=== PATIENT | female | born 1955 | race Caucasian/White ===

== ENCOUNTER 2016-08-02 19:16 | Inpatient (IN) | payer OTHER ==
--- NOTE | ~2016-08-02 | DS ---
Unit #: [id number] #: [id number] Patient: HUSSAIN PETERSON [id number] [address] [place], [place] [address] [id number] Anish MR#: [id number] NAME: HUSSAIN PETERSON. ROOM: 553 Age: Sex: F Admission Date: 08/02/2016 : 1955 Discharge Date: 08/15/2016 Attending Physician: Vasiliy Stein M.D. Referring Physician: Sherice Schumacher Aprn Primary Care Physician: Sherice Schumacher Aprn DISCHARGE SUMMARY ADDENDUM In the last few days, she is on Coumadin and with bridging anticoagulation with heparin which was transitioned to Lovenox yesterday. Her INR is 2.1, therapeutic. I spoke with Dr. Cee and she is agreeable for her discharge today. For myelodysplasia, did have a bone marrow biopsy. The biopsy report is pending at this point. I spoke with Dr. Mckeon yesterday. He is scheduling her for an outpatient followup for the bone marrow biopsy result for further plan regarding anemia. Kindly note, she had upper scope which was essentially normal apart from mild gastritis which was done as a part of workup for anemia. She is doing clinically stable. She will be discharged home with home health care. PHYSICAL EXAMINATION On the day of the discharge, her physical examination: VITAL SIGNS: Temperature 98.1, pulse rate 70, respirations 16, blood pressure 120/49. GENERAL: Patient is alert, oriented x3. Lying in the bed, no acute distress. HEENT: Normocephalic and atraumatic. No icterus. PERRLA. Extraocular muscles intact. NECK: Supple. No JVD. HEART: S1, S2. Irregular. CHEST: Bilateral equal air entry. Clear to auscultation. ABDOMEN: Soft, nontender. EXTREMITIES: No edema. Normal pulses. DISCHARGE MEDICATIONS 1. Protonix 40 mg p.o. daily. 2. Coumadin 7.5 mg p.o. daily and to target INR between 2-3. Kindly note, due to her recent GI bleed, she is instructed to keep her INR therapeutic in the lower between 2-3 range. 3. Zoloft 100 mg daily. 4. Zyrtec 5 mg daily. 5. Klonopin 0.5 mg p.o. twice a day. 6. Coreg 3.125 mg twice a day. 7. Bumex dosage changed to 1 mg p.o. twice a day with an additional dose 1 mg if there is an increase in shortness of breath or swelling. 8. Pravachol 20 mg at bedtime. 9. Lisinopril 2.5 mg at bedtime. 10. Singulair 10 mg daily. 11. Aspirin 81 mg daily. Unit #: [id number] #: [id number] Patient: HUSSAIN PETERSON 12. Protonix 40 mg daily. 13. KCl 20 mEq p.o. daily. 14. Synthroid 175 mcg p.o. daily. 15. Folic acid 1 mg p.o. daily which is an over the counter. 16. Vitamin D2 at 50,000 units p.o. q. weekly. FOLLOWUP She is instructed to follow with her primary care and with cardiology. I am also giving her a prescription to repeat BMP and CBC in one week. All the discharge instructions explained in detail to the patient. Total time spent in her care 35 minutes. Dictated by... Moreno Blum TD: 08/15/2016 11:20 JOB #: [id number] DISCHARGE SUMMARY Page 1 of 1 X X DISCHARGE SUMMARY
--- NOTE | ~2016-08-02 | XA51 ---
[facility] A Service of [facility] & [facility] RADIOLOGY TEXT RESULTS PATIENT: HUSSAIN PETERSON LOCATION: [place] [address] : 55 UNIT #: [id number] AGE: [address]: Vasiliy Stein MD SEX: F ORDER DR: [id number] [facility] [address] [place], [place] [address] [id number] I MR#: [id number] Acc #: [id number] NAME: HUSSAIN PETERSON : 1955 SEX: F STUDY DATE/TIME: 08/07/2016 11:18 UNIT: [facility] ROOM: [facility] STUDY DESCRIPTION: XA BX Bone Marrow Attending Physician: Vasiliy Stein M.D. Referring Physician: Sherice Schumacher Aprn Ordering Physician: Mike Ha M.D. Primary Care Physician: Sherice Schumacher Aprn MEDICAL IMAGING REPORT This report is preliminary unless electronic signature is present EXAM XA BX bone marrow.. INDICATION Pancytopenia. She apparently had this diagnosis in the past but was lost to followup. FINDINGS Please see CT guide for result text. Dictated by... Talisha Biggs M.D. THIS IS AN ELECTRONICALLY VERIFIED REPORT Talisha Biggs M.D. at 08/08/2016 12:55 PM AFF/tmw TD: 08/08/2016 09:22 JOB #: [id number] MEDICAL IMAGING REPORT Page 1 of 1 COPY
--- NOTE | ~2016-08-02 | CO ---
Unit #: [id number] #: [id number] Patient: HUSSAIN PETERSON [id number] [address] [place], [place] [address] [id number] I MR#: [id number] NAME: HUSSAIN PETERSON ROOM: 553 Age: 61 Sex: F Admission Date: 08/02/2016 : 1955 Attending Physician: Vasiliy Stein M.D. Primary Care Physician: Sherice Schumacher, Susanne Consultation Date: 08/03/2016 CONSULTATION REPORT REASON FOR CONSULTATION Congestive heart failure. HISTORY OF PRESENT ILLNESS This is a 61-year-old white female, who is known to our group, who has a history of nonischemic cardiomyopathy for which she underwent AICD implantation. She has severe left ventricular systolic dysfunction with an ejection fraction of 20% to 25% per echocardiogram in 2014. She had a cardiac catheterization in 2008, which revealed normal coronaries. Stress test in 2014 showed minerva-infarct ischemia of old inferolateral myocardial infarction and old anterior wall myocardial infarction. In 2008, she had ventricular tachycardia and cardiac arrest and AICD was placed at that time. She had a mechanical mitral valve replacement in 1989. The patient presents to the emergency room with a complaint of shortness of breath and leg edema. She also reports sore throat, lightheadedness, and weakness. She was found to have severe anemia with hemoglobin of 4.7. She was also hypokalemic with potassium level of 3.4. Troponin is mildly elevated at 0.07. BNP is 550. Chest x-ray was consistent with vshn-yz-soxrrttp congestive heart failure. She was admitted to the intensive care unit and received 2 units of packed red blood cells. She was diuresed with IV diuretics prior to blood transfusion. The patient was hospitalized in 04/2016, where she was found to have aortic and mitral valve disease and underwent aortic valve replacement with repair of mitral valve perivalvular leak and tricuspid valve repair at [facility] per Dr. Erwin. She underwent a right and left heart catheterization per Dr. Burr; however, the details are not known. PAST MEDICAL HISTORY 1. Chronic systolic heart failure with reduced ejection fraction of 20% to 25% per echocardiogram in 08/2014. 2. Mechanical mitral valve replacement in 1989. 3. Ventricular tachycardia and cardiac arrest in 2008, status post AICD. 4. Paroxysmal atrial fibrillation, on anticoagulation with Coumadin. 5. Lexiscan Cardiolite stress test in 08/2014, which revealed old inferolateral myocardial infarction with minerva-infarct ischemia. Old anterior wall myocardial infarction with no ischemia. Ejection fraction of 35%. 6. 2D echocardiogram in 08/2014 showed an ejection fraction of 20% to 25% with moderate mitral regurgitation and moderate aortic stenosis. Moderate tricuspid regurgitation. Unit #: [id number] #: [id number] Patient: HUSSAIN PETERSON 7. Hypertension. 8. Hyperlipidemia. 9. Hypothyroidism. 10. History of liver cirrhosis. 11. Chronic anemia. 12. Former smoker. 13. Chronic kidney disease. 14. Status post porcine aortic valve replacement with repair of mitral valve perivalvular leak and tricuspid valve repair per Dr. Erwin in 04/2016 at [facility]. Report unavailable. 15. History of recurrent GI bleed. PAST SURGICAL HISTORY 1. AICD implantation. 2. Mitral valve repair in 1989. 3. Partial hysterectomy. 4. Tonsillectomy. SOCIAL HISTORY The patient lives at home with her family. She is mostly sedentary. Quit smoking in 2014, previously smoked half a pack of cigarettes daily. Denies illicit drug or alcohol use. FAMILY HISTORY Mother has history of atrial fibrillation. ALLERGIES Ambien, cephalexin, and sulfa. HOME MEDICATIONS Coumadin 7.5 mg daily, carvedilol 3.125 mg b.i.d., potassium chloride 20 mEq daily, lisinopril 2.5 mg q.h.s., Bumex 2 mg b.i.d., Zyrtec 5 mg daily, Protonix 40 mg daily, clonazepam 0.5 mg b.i.d. p.r.n., Singulair 10 mg daily, levothyroxine 175 mcg daily, Zoloft 100 mg q.h.s., Pravachol 20 mg q.h.s., vitamin D2 50,000 units weekly. PHYSICAL EXAMINATION VITAL SIGNS: Blood pressure 131/51, heart rate 67, temperature 98.2, BMI 31. GENERAL: This is a 61-year-old mildly obese, white female, who is in no acute respiratory distress. NEUROLOGIC: She is awake, alert, and oriented. There were no focal weaknesses. NECK: Trachea is midline. No thyromegaly or lymphadenopathy. No jugular venous distention. HEART: S1 and S2. Heart sounds are normal with a soft systolic murmur heard best at the right sternal border. No rubs or clicks. Regular rate and rhythm. LUNGS: Have rales at both lung bases. ABDOMEN: Soft and nontender with bowel sounds are present. EXTREMITIES: With 1+ leg edema. SKIN: Warm and dry. DIAGNOSTIC STUDIES LABORATORY RESULTS: Glucose 82, BUN 18, creatinine 1.0. Sodium 142, potassium 3.4. CK total of 25, troponin 0.07 and 0.04. BNP 550. Protime 34.6, INR 3.2. White count 2.2, hemoglobin 6.6, hematocrit 21.3, platelet Unit #: [id number] #: [id number] Patient: HUSSAIN PETERSON E count is 88. IMAGING STUDIES: Chest x-ray noted for gkxo-hl-xtaoexeo congestive heart failure. CARDIOVASCULAR STUDIES: EKG shows normal sinus rhythm with a rate of 63 beats per minute with left bundle-branch block. There was poor R-wave progression. IMPRESSION 1. Leg edema and shortness of breath secondary to acute on chronic systolic heart failure. 2. History of nonischemic cardiomyopathy with ejection fraction of 20%. 3. Status post tissue aortic valve replacement with repair of mechanical mitral valve perivalvular leak and tricuspid valve repair in 04/2016 at [facility]. 4. History of mechanical mitral valve replacement in 1989 and 2008. 5. History of ventricular tachycardia and cardiac arrest. 6. Paroxysmal atrial fibrillation. 7. Severe anemia, questionable myelodysplasia with pancytopenia. 8. Hypoproteinemia. PLAN 1. Cardiology was consulted for congestive heart failure. The patient has been given Lasix along with blood transfusion. We have told her to restrict fluids to 1800 mL a day. 2. Start on Aldactone. 3. Obtain 2D echocardiogram to evaluate left ventricular systolic function. 4. Attempt to obtain catheterization report from [facility]. 5. Evaluate pancytopenia. 6. Continue Coumadin anticoagulation for mitral valve prosthesis and paroxysmal atrial fibrillation. 7. We will follow the patient with you. Thank you for allowing us to assist in this patient's care. Dictated by... Fab JuddPAungN. for Moreno Alfaro/modl TD: 08/04/2016 02:30 JOB #: [id number] CONSULTATION REPORT Page 1 of 1 X Giorgio Ramsey APRN CONSULTATION REPORT
--- NOTE | ~2016-08-02 | A ---
[facility] Nutrition Therapy DATE: 08/03/16 Patient: HUSSAIN PETERSON Physician: SABINA Address: [address] Room/Bed: [address], Zip: [place] [address] Admit Date: 08/02/16 Date of : [birth year] Height: 5 7 Weight: 198 90 NUTRITIONAL ASSESSMENT: REASON: Consult RE: Improve nutritional status 61 yo female admitted for anemia, CHF PMH: CHF, CKD, HLD, HTN, AICD placement, cardiac arrest, cardiomyopathy, tachycardia, hypothyroidism, Afib, s/p mitral valve replacement Anthropometrics: Ht: 67" Wt: 90 kg BMI: 31.1 Labs: K+ 3.4 Ca++ 8.1 Alb 3.0 Meds: Vitamin D, sprionolactone, protonix, synthroid, bumetanide, lipitor I/O & Bowel function: 720/250, last BM 08/02 Skin Integrity: No breakdown noted Edema: 2+ BL feet and legs Generalized Diet: Heart healthy/ 1800 mL fluid restriction Assessment: Chart reviewed, events noted. 61 yo female admitted to ICU for anemia and CHF. RD received consult to improve nutritional status. RD spoke with the pt at bedside. Pt was lethargic, struggling to keep her eyes open. Pt reports that she has gained weight lately, which she attributes to fluid retention. Pt reports having a fair appetite, and consumed ~40% of her breakfast and 60% of her Ensure Enlive. Pt prefers vanilla Ensure. RD suggested Ensure compact for a lower volume supplement, as the pt is on a fluid restriction. Pt is not appropriate for diet education at this time d/t lethargy. RD will follow up to provide education. Please see recommendations below. Dx: Decreased fluid needs RT edema/ fluid gain, PMH/ heart dysfunction AEB pt reported weight gain d/t fluid retention. Intervention: 1. Heart healthy diet 2. Fluid restriction per MD Monitoring, Evaluation and Goals: 1. Oral intake; tolerate >50-75% meals and supplements 2. Labs; WNL [facility] Nutrition Therapy DATE: 08/03/16 Patient: HUSSAIN PETERSON Physician: SABINA Address: [address] Room/Bed: [address], Zip: [place] [address] Admit Date: 08/02/16 Date of : [birth year] Height: 5 7 Weight: 198 90 3. Weight; preserve lean body mass, prevent fluid accumulation Recommendations: 1. Continue heart healthy diet + fluid restriction per MD as tolerated. RD to provide diet education as appropriate. 2. Ensure compact (vanilla) BID with breakfast and dinner for low-volume, supplemental nutrition. Pt is at mild-moderate nutritional risk. RD will follow hospital course per protocol. Respectfully, IMAN LAWS RD, LD [employer] [facility] [employer] cc: client file
--- NOTE | ~2016-08-02 | OR ---
Unit #: [id number] #: [id number] Patient: HUSSAIN PETERSON [id number] [place] [id number] [facility]. [place], [place] [address] [id number] I MR#: [id number] NAME: HUSSAIN PETERSON. ROOM: 553 Date of Procedure: 08/04/2016 Admission Date: 08/02/2016 Surgeon: Enrico Kline M.D. : 1955 Attending Physician: Vasiliy Stein M.D. Referring Physician: Sherice Schumacher Aprn Primary Care Physician: Sherice Schumacher Aprn OPERATIVE REPORT PRIMARY CARE PHYSICIAN Sherice Schumacher APRN. PREOPERATIVE DIAGNOSIS Recurrent gastrointestinal bleed. PROCEDURES PERFORMED Upper gastrointestinal endoscopy and a push enteroscopy. POSTOPERATIVE DIAGNOSIS Completely normal examination up to proximal jejunum except for mild antral gastritis. RECOMMENDATIONS The management of this patient's recurrent bleed is quite a challenging and difficult problem to resolve. It seems that she had an upper endoscopy and a colonoscopy done in [facility] [place] per Dr. Harpal Laurent. The upper endoscopy at that time was normal just like it is today. The patient however had fresh blood in the entire colon including in the terminal ileum indicating that the site of bleeding is in the small bowel. Vast majority of the bleeding in this situation would be coming from an angiodysplasia in the mid or distal small bowel beyond the region of the scope. Therefore, endoscopic treatment is impossible in this instance, even a pill CAM study will not pickup the bleed unless the patient is actively bleeding at the time of examination. My recommendation would be to consider mesenteric angiography in case of recurrent bleed and consider embolization therapy, even though it is a long shot as bleeding tends to be intermittent. We will also suggest to keep the INR at the lower end of the therapeutic range desired. SEDATION USED MAC. DESCRIPTION OF PROCEDURE Following detailed explanation of potential risks and complications of an upper endoscopy and push enteroscopy, namely perforation, bleeding, and complications related to sedation, the patient was brought to GI lab and laid in the left lateral decubitus position. Lubricated tip of Olympus video upper endoscope was passed through the bite block into the proximal esophagus under direct vision. The entire esophageal mucosa was examined and appeared normal. Z-line was nicely demarcated, there being no Unit #: [id number] #: [id number] Patient: HUSSAIN PETERSON esophagitis or hiatus hernia. The scope was then advanced into the gastric cavity and the latter was insufflated. Mucosa of the fundus, body, and antrum examined and appeared unremarkable. Pylorus was intubated with visualization of the normal duodenal bulb and second and third part of the duodenum. Upon withdrawal and retroflexion, incisura, cardia, and greater curve examined and changes of mild antral gastritis noted. The scope was then withdrawn in the distal esophagus. Entire esophageal mucosa was examined all the way up to pharynx, no additional findings noted. A pediatric colonoscope was used for push enteroscopy. At this time, the scope was advanced past the duodenum into the proximal jejunum. Again, no additional abnormalities noted. The patient did not have any angiodysplasias in the proximal jejunum. The scope was then withdrawn. The patient returned to the recovery area. She tolerated the procedure without any postprocedure complications. Dictated by... Moreno Avery/nanda TD: 08/05/2016 02:39 JOB #: [id number] OPERATIVE REPORT Page 1 of 1 X Enrico Kline MD X PROCEDURE OPERATIVE NOTE
--- NOTE | ~2016-08-02 | EKG ---
PATIENT: HUSSAIN PETERSON UNIT #: [id number] Ventricular Rate: 63 BPM Atrial Rate: 63 BPM QRS Duration: 140 ms Q-T Interval: 518 ms QTC Calculation(Bezet): 530 ms Calculated R [place]: 35 degrees Calculated T [place]: -160 degrees Diagnosis Line: Junctional rhythm Diagnosis Line: Non-specific intra-ventricular conduction block Diagnosis Line: T wave abnormality, consider lateral ischemia Diagnosis Line: Abnormal ECG Diagnosis Line: When compared with ECG of 10-JAN-2016 02:06, Diagnosis Line: Junctional rhythm has replaced Electronic Diagnosis Line: ventricular pacemaker Diagnosis Line: Confirmed by FELIPE BOND MD ([id number]) on 08/04/2016 Diagnosis Line: 6:06:05 AM INTERPRETING MD: RONDA REDDY
--- NOTE | ~2016-08-02 | CR72 ---
[facility] A Service of [facility] & [facility] RADIOLOGY TEXT RESULTS PATIENT: HUSSAIN PETERSON LOCATION: [facility] : 55 UNIT #: [id number] AGE: [address]: Vasiliy Stein MD SEX: F ORDER DR: [id number] [facility] [address] [place], [place] [address] [id number] I MR#: [id number] #: [id number] NAME: HUSSAIN PETERSON : 1955 SEX: F STUDY DATE/TIME: 08/02/2016 18:56 UNIT: [facility] ROOM: 04582 STUDY DESCRIPTION: CR Chest Single View Portable Attending Physician: Laquita Menard M.D. Referring Physician: Sherice Schumacher Aprn Ordering Physician: Bj Felipe M.D. Primary Care Physician: Sherice Schumacher Aprn MEDICAL IMAGING REPORT This report is preliminary unless electronic signature is present EXAM Portable chest HISTORY 61-year-old female shortness of air, weakness, leg swelling x4 days. COMPARISON 06/14/2016. FINDINGS Portable view of the chest demonstrates cardiomegaly with probable pulmonary vascular interstitium compatible with [id number]-xciovcbv CHF. No effusions. Dual-lead pacemaker defibrillator noted overlying the left chest. Stable cardiomegaly in this patient post median sternotomy and apparent CABG. No pneumothorax. Dictated by... Dario Jarrell M.D. THIS IS AN ELECTRONICALLY VERIFIED REPORT Dario Jarrell M.D. at 08/03/2016 2:03 PM Wong TD: 08/02/2016 21:53 JOB #: [id number] MEDICAL IMAGING REPORT Page 1 of 1 COPY
--- NOTE | ~2016-08-02 | HP ---
Unit #: [id number] #: [id number] Patient: HUSSAIN PETERSON [id number] [address] [place], [place] [address] [id number] I MR#: [id number] NAME: HUSSAIN PETERSON. ROOM: 35678 Age: 61 Sex: F Admission Date: 08/02/2016 : 1955 Attending Physician: Laquita Menard M.D. Referring Physician: Sherice Schumacher Aprn Primary Care Physician: Sherice Schumacher Aprn HISTORY AND PHYSICAL CHIEF COMPLAINT Symptomatic anemia, congestive heart failure. HISTORY OF PRESENT ILLNESS This is pleasant 61-year-old female with a cardiomyopathy, anticoagulated, status post mechanical valve replacement and for atrial fibrillation, is admitted for profound anemia and congestive heart failure. The patient was well until the past week when she developed a sore throat, lightheadedness, weakness, increasing pedal edema, shortness of breath. Denies chest pain with the above. No melena or hematochezia. She presents to this emergency department profoundly anemic with a hemoglobin of 4.7, hematocrit 15.6 down from a hematocrit of 24.8. MCV is 77. She also has thrombocytopenia and neutropenia. On examination and on chest x-ray, she demonstrates congestive heart failure. INR is therapeutic at 3. A rectal examination was performed in the ER revealing trace heme-positive stool. In the ER, she was given 40 mg of IV Protonix. PAST MEDICAL HISTORY 1. Nonischemic cardiomyopathy, ejection fraction 20% to 25% on echo August 2014 with moderate AR, mild , moderate TR, well-functioning mechanical valve. Cardiolite stress test August 2014, old inferolateral [place] minerva-infarct ischemia. Cardiac catheterization 2008 revealed normal coronary arteries. Patient does have a history of ventricular tachycardia as well. 2. Chronic atrial fibrillation, status post AICD placement. 3. Status post mitral valve replacement. 4. Hyperlipidemia. 5. Hypothyroidism. 6. Asthma. 7. Chronic kidney disease. 8. Anxiety and depression. 9. Thrombocytopenia. 10. Chronic kidney disease. 11. Hysterectomy. 12. Tonsillectomy. ALLERGIES 1. Ambien. 2. Keflex. 3. Sulfa. 4. Patient states that she cannot take Lovenox but she is able to take heparin. Unit #: [id number] #: [id number] Patient: HUSSAIN PETERSON HOME MEDICATIONS 1. Coumadin 7.5 mg daily. 2. Coreg 3.125 mg b.i.d. 3. Potassium 20 mEq daily. 4. Lisinopril 2.5 mg h.s. 5. Bumex 2 mg b.i.d. 6. Zyrtec 5 mg daily. 7. Protonix 40 mg daily. 8. Klonopin 0.5 mg b.i.d. p.r.n. 9. Singulair 10 mg daily. 10. Synthroid 0.175 mg daily. 11. Zoloft 100 mg h.s. 12. Pravachol 20 mg h.s. 13. Vitamin D 50,000 units each week. SOCIAL HISTORY The patient lives with her son. She stopped smoking two years ago. Does not drink alcohol. FAMILY HISTORY Possible polycythemia vera. REVIEW OF SYSTEMS Notable for shortness of breath, lightheadedness, weakness, sore throat, congestive heart failure, mitral valve replacement, atrial fibrillation, ventricular tachycardia, hypothyroidism, hypertension, chronic kidney disease, above-mentioned surgeries. All other systems were reviewed and are negative. PHYSICAL EXAMINATION VITAL SIGNS: Temperature 97.6, pulse 76, respirations 16, blood pressure 116/44, O2 saturation 100% on room air. GENERAL: Pleasant, pale-appearing 61-year-old female currently in no acute distress. HEENT: Eyes PERRLA. Extraocular muscles are intact. Pharynx benign. NECK: Supple without adenopathy or thyromegaly. Elevated JVD noted. CHEST: Crackles bilaterally. HEART: Normal S1, S2 with a loud systolic murmur heard throughout the precordium. The patient has a crisp prosthetic valve sound at the apex. ABDOMEN: Bowel sounds are present. No hepatosplenomegaly, tenderness or masses. EXTREMITIES: 3+ pedal edema. NEUROLOGIC: Awake, alert, oriented. Cranial nerves are intact. Equal strength throughout. DIAGNOSTIC STUDIES LABORATORY: Hematocrit 15.6 with MCV of 77.1, platelet count 89, white blood cell count 2.3 with a normal differential. INR is 3.1. SMA-12 calcium 8.2, albumin 3.2. BNP 523. Troponin 0.07 and 0.08. IMAGING: Chest x-ray cardiomegaly, mild congestive heart failure. ASSESSMENT 1. Symptomatic microcytic anemia. Patient is trace heme-positive on rectal examination. Lab work, however, also demonstrates pancytopenia. 2. Status post mitral valve replacement, anticoagulated with a therapeutic INR. Unit #: [id number] #: [id number] Patient: HUSSAIN PETERSON 3. Cardiomyopathy with congestive heart failure exacerbation secondary to anemia. 4. Chronic atrial fibrillation/sick sinus syndrome/AICD placement. 5. Hypothyroidism. 6. Anxiety and depression. 7. Hypertension. 8. Chronic kidney disease. PLAN 1. Transfuse with Bumex. 2. I's and O's and daily weights. 3. IV proton pump inhibitor. 4. Hold Coumadin. 5. Anemia workup. 6. Cardiology, Gastroenterology and Hematology to see in consultation. Critical care time spent evaluating this patient was 40 minutes. Dictated by Laquita Menard M.D. AML/malka TD: 08/02/2016 21:52 JOB #: [id number] HISTORY AND PHYSICAL Page 1 of 1 X Laquita Menard MD X HISTORY AND PHYSICAL
--- NOTE | ~2016-08-02 | CR72 ---
[facility] A Service of [facility] RADIOLOGY TEXT RESULTS PATIENT: HUSSAIN PETERSON LOCATION: [place] [address] : [birth year] UNIT #: [id number] AGE: [address]: Vasiliy Stein MD SEX: F ORDER DR: [id number] [facility] [address] [place], [place] [address] [id number] I MR#: [id number] Acc #: [id number] NAME: HUSSAIN PETERSON : 1955 SEX: F STUDY DATE/TIME: 08/06/2016 0:52 UNIT: [facility] ROOM: [facility] STUDY DESCRIPTION: CR Chest Single View Portable Attending Physician: Vasiliy Stein M.D. Referring Physician: Sherice Schumacher Aprn Ordering Physician: Vasiliy Stein M.D. Primary Care Physician: Sherice Schumacher Aprn MEDICAL IMAGING REPORT This report is preliminary unless electronic signature is present EXAM Portable chest INDICATIONS PIC catheter placement TECHNIQUE/COMPARISON This portable view of the chest compared with 08/02/2016 FINDINGS The PIC catheter has been added and the tip is in the lower SVC. There is mild diffuse interstitial prominence and cardiomegaly and the pacemaker is stable. Dictated by... Benjamin Powers M.D. THIS IS AN ELECTRONICALLY VERIFIED REPORT Benjamin Pwoers M.D. at 08/06/2016 9:55 PM FEL/to TD: 08/06/2016 18:04 JOB #: [id number] MEDICAL IMAGING REPORT Page 1 of 1 COPY
--- NOTE | ~2016-08-02 | FU ---
[facility] Nutrition Therapy DATE: 08/08/16 Patient: HUSSAIN PETERSON Physician: SABINA Address: [address] Room/Bed: [address] [place] [address], Zip: [place] [address] Admit Date: 08/02/16 Date of : 55 Height: 5 7 Weight: 195 88.6 NUTRITION MONITORING/FOLLOW-UP: Reason: PT SEEN FOR FOLLOW-UP DX: ANEMIA, CHF Anthropometrics: 5'7", WT: 195# ( 89 KG), BMI: 30.5 -WEIGHTS HAVE BEEN STABLE SINCE ADMIT Labs: CA+:8.1, ALB: 3.1 Meds: FOLIC ACID, VITAMIN D, PROTONIX, SPIRONOLACTONE, SYNTHROID, LIPITOR I&O's: 2136/2501, 1 BM NOTED Skin: NO KNOWN SKIN ISSUES Estimated Nutrition Needs: N/A Assessment: CHART REVIEWED AND EVENTS NOTED. PT SEEN FOR FOLLOW-UP. PT REPORTS APPETITE SLOWLY IMPROVING, NOTING CONSUMING ~50-100% OF MEALS, NO C/O N/V/D. PT REPORTS DRINKING THE VANILLA ENSURE COMPACT SHAKES. PT REPORTED NO DIET QUESTIONS AT THIS TIME. RD TO REMAIN AVAILABLE. Dx: DECREASED FLUID NEEDS R/T EDEMA/FLUID GAIN, PMH, HEART DYSFUNCTION AEB PT REPORT WEIGHT GAIN D/T FLUID RETENTION-ACTIVE. NEW DX: ALTERED NUTRIENT NEEDS R/T PMH AEB NEED FOR THERAPEUTIC DIET ORDER. Intervention: 1. CC+HH+ FLUID RESTICTION DIET 2. VANILLA ENSURE COMPACT BID Monitoring, Evaluation and Goals: GOALS MET 1. ORAL INTAKE; CONSUME >50% OF MEALS W/NO C/O N/V/D 2. WEIGHTS; PROMOTE LEAN BODY MASS; PREVENT FLUID RETENTION 3. LABS; WNL MONITOR: -PO INTAKE/APPETITE -WEIGHTS -SUPPLEMENT INTAKE Recommendations: 1. CONTINUE TO ENCOURAGE PO AND SUPPLEMENT INTAKE [facility] Nutrition Therapy DATE: 08/08/16 Patient: HUSSAIN PETERSON Physician: SABINA Address: [address] Room/Bed: [address] [place] [address], Zip: [place] [address] Admit Date: 08/02/16 Date of : 55 Height: 5 7 Weight: [address] WILL F/U PER PROTOCOL PT IS MILDLY COMPROMISED Respectfully, EMERSON LEA MS, RD, LD [employer] [facility] cc: client file
--- NOTE | ~2016-08-02 | CT134 ---
[facility] A Service of [facility] RADIOLOGY TEXT RESULTS PATIENT: HUSSAIN PETERSON LOCATION: [facility] 55- : 55 UNIT #: [id number] AGE: [address]: Vasiliy Stein MD SEX: F ORDER DR: [id number] [facility] [address] [place], [place] [address] [id number] I MR#: [id number] Acc #: [id number] NAME: HUSSAIN PETERSON. : 1955 SEX: F STUDY DATE/TIME: 08/07/2016 11:18 UNIT: [facility] STUDY DESCRIPTION: CT Guide Attending Physician: Vasiliy Stein M.D. Referring Physician: Sherice Schumacher Aprn Ordering Physician: Mike Ha M.D. Primary Care Physician: Sherice Schumacher Aprn MEDICAL IMAGING REPORT This report is preliminary unless electronic signature is present EXAM CT guided bone marrow biopsy. This CT exam was performed with one or more of the following radiation dose reduction techniques: automatic exposure control, adjustment of mA and/or kV according to patient size, and iterative reconstruction. INDICATION Pancytopenia. She apparently had this diagnosis in the past but was lost to followup. PROCEDURE The risks, benefits, and alternatives to the procedure were explained to the patient, and signed, informed consent was obtained. Patient was placed prone on the CT scanner gantry. Preliminary CT scan was performed through the region of interest and an appropriate site overlying the left iliac bone was selected. Overlying skin was marked. Patient was prepped and draped in the usual sterile fashion. Time-out was performed as per protocol. Skin and subcutaneous tissues were anesthetized with buffered lidocaine. Bone marrow biopsy needle was advanced into the left iliac bone. Repeat CT scan confirmed appropriate position of the needle which was then advanced into the bone marrow and a bone marrow aspirate was obtained. Needle was advanced further into the bone marrow and then removed which yielded an adequate core sample. Manual pressure was applied until hemostasis was obtained. Patient did receive conscious sedation consisting of Versed and fentanyl and continuous monitoring was provided throughout the procedure for a total of 55 minutes. Patient tolerated the procedure well and there were no immediate complications. IMPRESSION Technically successful CT-guided bone marrow biopsy as noted above. CT was used during the procedure and permanent images were saved. [facility] A Service of [facility] RADIOLOGY TEXT RESULTS PATIENT: HUSSAIN PETERSON LOCATION: [place] [address] : 55 UNIT #: [id number] AGE: [address]: Vasiliy Stein MD SEX: F ORDER DR: Dictated by... Talisha Biggs M.D. THIS IS AN ELECTRONICALLY VERIFIED REPORT Talisha Biggs M.D. at 08/08/2016 12:55 PM AFF/brian TD: 08/08/2016 09:15 JOB #: [id number] MEDICAL IMAGING REPORT Page 1 of 1 COPY
--- NOTE | ~2016-08-02 | TOC ---
Unit #: [id number] #: [id number] Patient: HUSSAIN PETERSON [id number] [facility] [address] [place], [place] [address] [id number] I MR#: [id number] NAME: HUSSAIN PETERSON. ROOM: 553 Age: 61 Sex: F Admission Date: 08/02/2016 : 1955 Attending Physician: Shane Chandler M.D. Referring Physician: Sherice Schumacher Aprn Primary Care Physician: Sherice Schumacher Aprn TRANSFER OF CARE SUMMARY DIAGNOSES ON ADMISSION 1. Symptomatic anemia. 2. Congestive heart failure. DIAGNOSES ON DISCHARGE 1. Pancytopenia, unexplained etiology. 2. Anemia. 3. Congestive heart failure with ejection fraction of 15 to 20%. 4. Mechanical mitral valve replacement. 5. Aortic valve replacement, tissue. 6. Status post AICD. 7. Permanent atrial fibrillation. 8. Chronic obstructive pulmonary disease. 9. Mild gastritis. 10. Hypothyroidism. CONSULTATIONS 1. Dr. Taylor in Cardiac consultation. 2. Dr. Ha in Hematology consultation. 3. Dr. Enrico Kline in GI consultation. LABS AND PROCEDURES DONE The patient had an EGD done which was a completely normal examination up to proximal jejunum except for mild antral gastritis. HOSPITAL COURSE This 61-year-old female was admitted to [facility] with anemia. Details are as per admission H and P. Pancytopenia: The patient received blood transfusion for anemia, was seen by Dr. Enrico Kline in consultation who performed EGD which was normal. The patient has also been seen by Hematology who will follow up on outpatient basis on the bone marrow results. The patient had a bone marrow biopsy done during this admission. Congestive heart failure: The patient had an echocardiogram done which revealed an ejection fraction of 15 to 20%. The patient was seen by Dr. Cee in consultation. Mitral valve replacement with mechanical valve: The patient is on IV heparin and Coumadin. The goal is once the patient's INR is therapeutic, she will be discharged home with further followup on outpatient basis. The patient's remaining hospital course will be dictated by my partner. Unit #: [id number] #: [id number] Patient: HUSSAIN PETERSON Dictated by... Moreno Wolf TD: 08/11/2016 13:36 JOB #: [id number] TRANSFER OF CARE SUMMARY Page 1 of 1 X Shane Chandler MD TRANSFER OF CARE SUMMARY
--- NOTE | ~2016-08-02 | CO ---
Unit #: [id number] #: [id number] Patient: HUSSAIN PETERSON [id number] [place] [id number] [facility]. [place], [place] [address] [id number] I MR#: [id number] NAME: HUSSAIN PETERSON. ROOM: 553 Age: 61 Sex: F Admission Date: 08/02/2016 : 1955 Attending Physician: Vasiliy Stein M.D. Primary Care Physician: Sherice Schumacher Aprn Consultation Date: 08/03/2016 CONSULTATION REPORT REASON FOR CONSULTATION GI bleed. HISTORY OF PRESENT ILLNESS Ms. Peterson is a very pleasant 61-year-old white female. The patient lives at home with her daughter and mother. She has longstanding history of cardiomyopathy and is status post mitral valve replacement in 04/2016, and has been on long-term anticoagulation for the latter as well as for atrial fibrillation. She is admitted, because of profound anemia with a hemoglobin of 4.4 and congestive heart failure. It is noteworthy that the patient had mitral valve replacement in 04/2016 and subsequently she has had one or two episodes of significant drop in hemoglobin requiring hospitalization. During first hospitalization, she did have nik noticeable bleeding and had upper endoscopy and a colonoscopy at [facility] by Dr. Harpal Laurent. From the records, it seems that she had normal upper endoscopy, nik blood in the terminal ileum and in the colon indicating small bowel bleed. This is most likely coming from an angiodysplasia which are hard to localize. Also, the fact that the patient is on long-term anticoagulation, because of mitral valve replacement, makes it extremely daunting task to fix this condition. She was also found to be neutropenic and thrombocytopenic on admission. PAST MEDICAL HISTORY Significant for history of cardiomyopathy with an ejection fraction 20% to 25%; history of atrial fibrillation, on long-term anticoagulation; status post AICD placement; history of hypothyroidism; hyperlipidemia; asthma; stage 3 chronic kidney disease; anxiety; and depression. PAST SURGICAL HISTORY Included hysterectomy and tonsillectomy. MEDICATIONS At home included Coumadin, warfarin, Coreg, potassium, lisinopril, Bumex, Zyrtec, Klonopin, Protonix, Singulair, Synthroid, Zoloft, Pravachol, and vitamin D. ALLERGIES She is allergic to Keflex, sulfonamides, Ambien. SOCIAL HISTORY The patient lives with her daughter. She does not smoke or drink alcohol. She stopped smoking couple of years ago. Unit #: [id number] #: [id number] Patient: HUSSAIN PETERSON FAMILY HISTORY None of colon, pancreatic cancer, or liver disease. REVIEW OF SYSTEMS Detailed review of organ systems is significant for fatigue, shortness of breath, and generalized weakness as well as dependent swelling over the lower extremities. No history of headache, seizures, chest pain, or syncope. No history of fever, chills, or rigors. No history of weight loss. No history of dysuria, hematuria, or pyuria. No history of cough, expectoration, or hemoptysis. No history of focal seizures or extremity weakness. No history of overt GI bleed, at least discernible overt GI bleed. PHYSICAL EXAMINATION GENERAL: She is awake and alert, and appears pale and comfortable. VITAL SIGNS: Stable with a temperature of 98.0, pulse 77 per minute and regular, respiratory rate is 28, blood pressure is 123/49. She weighs 198 pounds. Her baseline weight has been about 203 to 212 pounds in the past. HEENT: She has severe pallor. There being no icterus, lymphadenopathy, grade 3 pitting peripheral edema. CARDIOVASCULAR: Confirms prosthetic valve sounds on auscultation. LUNGS: Reveal normal breath sounds. Good air entry. ABDOMEN: Soft and nontender. Liver and spleen are not palpable. Bowel sounds normal. DIAGNOSTIC STUDIES LABORATORY RESULTS: Shows a hemoglobin of 4.4 on admission. Her baseline hemoglobin is 9. The patient is currently getting units of packed cells. BUN and creatinine are surprisingly normal. She does have thrombocytopenia and neutropenia with a neutrophil count of 2.2 and platelet count of 88. Albumin is 3.0. BNP is 550. The patient does have low iron and transferrin saturation and high TIBC. CLINICAL IMPRESSION The patient most likely has an acute bleed on top of chronic bleed and iron deficiency. The issue of the fact that she might be bleeding from the small bowel from an angiodysplasia makes it extremely difficult to localize the lesion and to treat it, as she is likely to need terminal worker anticoagulation because of the prosthetic valve. These issues were discussed at length with the patient. There is no reason to repeat the colonoscopy; however, an upper endoscopy and a push enteroscopy will be worthwhile if we could localize the small bowel bleed, which is in the proximal small bowel. The test will be performed tomorrow. The patient was explained of the pros and cons and potential risks and complications. Dictated by... Moreno Avery/nadna TD: 08/04/2016 00:34 JOB #: [id number] CC: Laquita Menard M.D. Unit #: [id number] #: [id number] Patient: HUSSAIN PETERSON CONSULTATION REPORT Page 1 of 1 X Enrico Kline MD X CONSULTATION REPORT
--- NOTE | ~2016-08-02 | HP ---
Unit #: [id number] #: [id number] Patient: HUSSAIN PETERSON [id number] [place], [place] [address] [id number] I MR#: [id number] NAME: HUSSAIN PETERSON [place] [facility] Age: 61 Sex: F Admission Date: 08/02/2016 : 1955 Attending Physician: Vasiliy Stein M.D. Referring Physician: Sherice Schumacher Aprn Primary Care Physician: Sherice Schumacher Aprn HISTORY AND PHYSICAL REASON FOR EVALUATION Pancytopenia, please evaluate. HISTORY OF PRESENT ILLNESS This 61-year-old lady, who was seen by us in 03/2015, at that time had pancytopenia, iron deficiency anemia, and was treated, improved and then was lost to followup. She presents again now with pancytopenia, symptomatic anemia. GI workup is in progress. She was hemoccult positive. We are requested to evaluate. Today on questioning there has been no repeated infection. There has been no overt bleeding. Mainly shortness of breath, tiredness, lightheadedness and weakness. No hemoptysis, hematemesis, melena, hematuria or hematochezia. PAST MEDICAL HISTORY 1. As stated above. History of pancytopenia before. 2. Iron deficiency anemia. 3. The patient has MVR on warfarin. 4. Hemoccult positive stools, meaning possible low-grade GI blood loss. 5. Past history of hypothyroidism. 6. Hyperlipidemia. 7. Chronic kidney disease. 8. Anxiety. 9. Depression. 10. Asthma. Please see the chart for further details. SOCIAL HISTORY The patient is retired. Lives with son. Quit smoking a few years ago. No alcohol usage. FAMILY HISTORY Negative for unexplained anemia. Positive for polycythemia vera. ALLERGIES Keflex, Ambien, sulfa and as per the patient she states that she has been told not to use Lovenox. She does not know why, but can have heparin. She does not know why. CURRENT MEDICATIONS 1. Zyrtec. 2. Warfarin. 3. Coreg. 4. Lisinopril. Unit #: [id number] #: [id number] Patient: PETERSON,HUSSAIN E 5. Potassium. 6. Bumex. 7. Zoloft. 8. Pravachol. 9. Vitamin D. 10. Klonopin. 11. Singulair. 12. Protonix. REVIEW OF SYSTEMS Multifactorial with dizziness, lightheadedness, shortness of breath on exertion, palpitations. Otherwise 8 or 10 systems are within normal limits. PHYSICAL EXAMINATION GENERAL: Moderately pale. No palpable nodes. LUNGS: Clear. HEART: Distant. ABDOMEN: No organomegaly. NEUROLOGIC: PALLETIZER grossly intact. PELVIC/BREAST: Not performed. DIAGNOSTIC STUDIES LABORATORY: CBC, hemoglobin 6.6, hematocrit 21.3, white blood cell count 2200, platelets 88,000, sodium 142, potassium 3.4, chloride 108, CO2 28, glucose 82, BUN 18, creatinine 1.0. B12 and folic acid were within normal limits. Saturation of iron is 2%. PT 34, INR 3.2. ASSESSMENT/PLAN Pancytopenia and iron deficiency anemia. GI workup in progress. IV iron ordered. It will not explain the pancytopenia completely, so at this point we are holding the warfarin. Will check the PT/INR tomorrow. If it is adequate, we will proceed with a bone marrow aspirate biopsy to complete the workup and proceed further. Dictated by Moreno Burgess/capri TD: 08/03/2016 15:24 JOB #: [id number] HISTORY AND PHYSICAL Page 1 of 1 X Mike Ha MD X HISTORY AND PHYSICAL
[2016-08-02 16:53] LABS: BASOPHIL% 1.1 % (0-2.5); EOSINOPHIL# 0.1 X10e3 (0-0.7); EOSINOPHIL% 4.9 % (0.0-7.0); HEMATOCRIT 15.6 % (35.0-45.0); LYMPHOCYTE# 0.6 X10e3 (1.0-3.5); MEAN CELL VOLUME 77.1 FL (83-96); MEAN CORPUSCULAR HEMOGLOBIN 23.1 PG (28-34); MEAN PLATELET VOLUME 8.3 FL (6.5-11.5); MONOCYTE# 0.3 X10e3 (0-1.0); MONOCYTE% 12.3 % (3.0-12.0); NEUTROPHIL# 1.3 X10e3 (1.5-7.1); NEUTROPHIL% 56.7 % (40-75); RED BLOOD COUNT 2.02 X10e (3.90-5.30); RED CELL DISTRIBUTION WIDTH 19.8 % (11.0-15.5); WHITE BLOOD COUNT 2.3 X10e3 (4.0-10.5)
[2016-08-02 17:16] LABS: ALBUMIN SERUM 3.2 g/dL (3.5-5.0); BILIRUBIN,TOTAL 0.6 mg/dL (0.2-2.0); BUN/CREATININE RATIO 14.16; CALCIUM SERUM 8.2 mg/dL (8.4-10.2); CREATININE SERUM 1.2 mg/dL (0.6-1.4); GLOM FILT RATE Estimated 48.7 mL/min (>60); POTASSIUM 3.6 mmol/L (3.5-5.1); PROTEIN TOTAL SERUM 6.3 g/dL (6.0-8.3)
[2016-08-02 17:46] LABS: DIFF IND YES; HEMOGLOBIN 4.7 gm/dL (12.0-16.0); PLATELET COUNT 89 X10e3 (140-420)
[2016-08-02 17:47] LABS: ANISOCYTOSIS MOD; HYPOCHROMIA SL; PLATELET ESTIMATE DECREASED (NORMAL); POIKILOCYTOSIS SL; RBC NORMAL YES
[2016-08-02 17:48] LABS: MICROCYTOSIS MOD
[2016-08-02 18:28] LABS: INR 3.1; PARTIAL THROMBOPLASTIN TIME 43.7 SECONDS (23.5-31.3)
[2016-08-02 18:31] LABS: PROTHROMBIN TIME (PATIENT) 34.5 SECONDS (9.6-11.5)
[2016-08-02 18:34] LABS: POC - CKMB <1.0 ng/mL (0.0-7.9); POC - TROPONIN 0.08 ng/mL (<=0.05)
[2016-08-02 18:36] LABS: POC - CKMB <1.0 ng/mL (0.0-7.9); POC - TROPONIN 0.07 ng/mL (<=0.05)
[~2016-08-02 19:16] MED LIST: ACETAMINOPHEN650 M1 PO; AFRIN NASAL SPR15 ML INH; ALBUTEROL17 GM INH; ALDACTONE25 MG PO; ALPRAZOLAM PO; AMIODARONE PO; ASPIRIN81 M1 PO; BUMEX1 MG PO; BUSPAR5 M1 PO; CARVEDILOL25 MG PO; CELEXA PO; CETIRIZINE HCL10 MG PO; CITALOPRAM HBR40 MG PO; CLONAZEPAM0.5 MG PO; COMBIVENT U/D3 M2 INH; CORDARONE200 M1 PO; COREG PO; COREG12.5 MG PO; COUMADIN PO; COUMADIN10 MG PO; COUMADIN5 MG PO; COUMADIN6 MG PO; COUMADIN7.5 MG PO; FELDENE20 MG PO; FISH OIL 1,0001 CAP PO; FISH OIL 1,001000 MG PO; FLONASE16 GM; FOLIC ACID1 MG PO; FUROSEMIDE40 MG PO; GABAPENTIN300 M2 PO; HYDROCODON-ACE1 EAC7 PO; HYDROCORTISONE30 G6; JANTOVEN2 MG PO; K-DUR10 MEQ PO; K-DUR20 ME1 PO; K-TAB ER20 MEQ PO; KLONOPIN PO; LANOXIN PO; LASIX PO; LASIX20 MG PO; LEVAQUIN PO; LEVOTHROID100 MC1 PO; LEVOTHYROXINE100 MC1 PO; LEVOTHYROXINE150 MCG PO; LEVOXYL150 MCG PO; LIPITOR PO; LISINOPRIL PO; LISINOPRIL10 MG PO; LISINOPRIL5 MG PO; LOPRESSOR PO; MONTELUKAST SOD10 MG PO; NASONEX17 GM; OMEPRAZOLE20 M2 PO; POTASSIUM CHLO10 MEQ PO; PRAVACHOL PO; PRAVACHOL20 MG PO; PRAVASTATIN SOD20 MG PO; PREDNISONE PO; PREMARIN PO; PREMARIN0.625 MG PO; PRILOSEC PO; PRILOSEC20 MG PO; PROMETHAZINE V240 ML PO; PROTONIX PO; SERTRALINE HCL100 M1; SERTRALINE HCL100 M1 PO; SINGULAIR PO; ST. JOSEPH ASPI81 M2 PO; SYNTHROID PO; TYLENOL325 M1 PO; VIBRAMYCIN100 M1 PO; WARFARIN SODIUM10 MG PO; WARFARIN SODIUM2 MG PO; WARFARIN SODIUM3 M1 PO; ZAROXYLYN PO; ZESTRIL5 MG PO; ZOLOFT100 MG PO; ZYRTEC PO; ZYRTEC10 M2 PO
[2016-08-02] MEDS ORDERED: K-LOR HOSPITAL20 ME1 PO (19:17)
[2016-08-02] MEDS ORDERED: BUMEX2 MG PO (19:17)
[2016-08-02] MEDS ORDERED: PROTONIX PO (19:17)
[2016-08-02] MEDS ORDERED: LISINOPRIL2.5 MG PO (19:17)
[2016-08-02] MEDS ORDERED: ZYRTEC5 M2 PO (19:17)
[2016-08-02] MEDS ORDERED: COREG3.125 MG PO (19:17)
[2016-08-02] MEDS ORDERED: ZOLOFT100 MG PO (19:18)
[2016-08-02] MEDS ORDERED: SINGULAIR PO (19:18)
[2016-08-02] MEDS ORDERED: SYNTHROID175 MCG PO (19:18)
[2016-08-02] MEDS ORDERED: KLONOPIN0.5 MG PO (19:18)
[2016-08-02] MEDS ORDERED: VITAMIN D250000 UNIT PO (19:18)
[2016-08-02] MEDS ORDERED: PRAVACHOL20 MG PO (19:18)
[2016-08-02 23:09] LABS: FOLATE (FOLIC ACID) 10.6 ng/mL (>5.8)
[2016-08-03 07:34] LABS: BASOPHIL% 1.2 % (0-2.5); EOSINOPHIL# 0.2 X10e3 (0-0.7); EOSINOPHIL% 7.5 % (0.0-7.0); HEMATOCRIT 18.5 % (35.0-45.0); LYMPHOCYTE# 0.7 X10e3 (1.0-3.5); LYMPHOCYTE% 30.6 % (17.0-45.0); MEAN CELL VOLUME 78.7 FL (83-96); MEAN CORPUSCULAR HEMOGLOBIN 24.3 PG (28-34); MEAN CORPUSCULAR HGB CONC 30.8 g/dL (30-36); MEAN PLATELET VOLUME 7.7 FL (6.5-11.5); MONOCYTE# 0.3 X10e3 (0-1.0); MONOCYTE% 11.9 % (3.0-12.0); NEUTROPHIL% 48.8 % (40-75); PLATELET COUNT 81 X10e3 (140-420); RED BLOOD COUNT 2.35 X10e (3.90-5.30); RED CELL DISTRIBUTION WIDTH 19.6 % (11.0-15.5); RETICULOCYTE 1.6 % (0.5-2.8); WHITE BLOOD COUNT 2.1 X10e3 (4.0-10.5)
[2016-08-03 07:38] LABS: INR 3.2; PROTHROMBIN TIME (PATIENT) 34.6 SECONDS (9.6-11.5)
[2016-08-03 07:40] LABS: DIFF IND NO; HEMOGLOBIN 5.7 gm/dL (12.0-16.0)
[2016-08-03 07:44] LABS: BILIRUBIN,TOTAL 1.1 mg/dL (0.2-2.0); CALCIUM SERUM 8.1 mg/dL (8.4-10.2); GLOM FILT RATE Estimated 60.8 mL/min (>60); POTASSIUM 3.4 mmol/L (3.5-5.1); PROTEIN TOTAL SERUM 5.7 g/dL (6.0-8.3)
[2016-08-03 08:45] LABS: BASOPHIL# 0.1 X10e3 (0-0.3); BASOPHIL% 2.5 % (0-2.5); EOSINOPHIL# 0.2 X10e3 (0-0.7); EOSINOPHIL% 8.2 % (0.0-7.0); HEMATOCRIT 21.3 % (35.0-45.0); LYMPHOCYTE# 0.6 X10e3 (1.0-3.5); LYMPHOCYTE% 28.5 % (17.0-45.0); MEAN CELL VOLUME 78.8 FL (83-96); MEAN CORPUSCULAR HEMOGLOBIN 24.5 PG (28-34); MEAN CORPUSCULAR HGB CONC 31.1 g/dL (30-36); MEAN PLATELET VOLUME 8.5 FL (6.5-11.5); MONOCYTE# 0.3 X10e3 (0-1.0); MONOCYTE% 11.4 % (3.0-12.0); NEUTROPHIL# 1.1 X10e3 (1.5-7.1); NEUTROPHIL% 49.4 % (40-75); PLATELET COUNT 88 X10e3 (140-420); RED BLOOD COUNT 2.71 X10e (3.90-5.30); RED CELL DISTRIBUTION WIDTH 19.4 % (11.0-15.5); WHITE BLOOD COUNT 2.2 X10e3 (4.0-10.5)
[2016-08-03 08:50] LABS: HEMOGLOBIN 6.6 gm/dL (12.0-16.0)
[2016-08-03 08:51] LABS: DIFF IND NO
[2016-08-03 18:13] LABS: HEMATOCRIT 24.5 % (35.0-45.0); HEMOGLOBIN 7.7 gm/dL (12.0-16.0)
[2016-08-03 23:45] LABS: HEMATOCRIT 24.8 % (35.0-45.0)
[2016-08-04 08:45] LABS: BUN/CREATININE RATIO 17.77; CALCIUM SERUM 8.2 mg/dL (8.4-10.2); CREATININE SERUM 0.9 mg/dL (0.6-1.4); GLOM FILT RATE Estimated 69.1 mL/min (>60); POTASSIUM 3.8 mmol/L (3.5-5.1)
[2016-08-04 08:52] LABS: BASOPHIL% 1.4 % (0-2.5); EOSINOPHIL# 0.2 X10e3 (0-0.7); LYMPHOCYTE# 0.8 X10e3 (1.0-3.5); LYMPHOCYTE% 23.9 % (17.0-45.0); MEAN CORPUSCULAR HEMOGLOBIN 25.7 PG (28-34); MEAN CORPUSCULAR HGB CONC 29.7 g/dL (30-36); MEAN PLATELET VOLUME 8.9 FL (6.5-11.5); MONOCYTE# 0.4 X10e3 (0-1.0); MONOCYTE% 11.6 % (3.0-12.0); NEUTROPHIL# 1.8 X10e3 (1.5-7.1); NEUTROPHIL% 56.1 % (40-75); RED BLOOD COUNT 3.25 X10e (3.90-5.30); WHITE BLOOD COUNT 3.2 X10e3 (4.0-10.5)
[2016-08-04 08:56] LABS: INR 2.2; PROTHROMBIN TIME (PATIENT) 23.4 SECONDS (9.6-11.5)
[2016-08-04 08:57] LABS: MEAN CELL VOLUME 86.2 FL (83-96); PLATELET COUNT 64 X10e3 (140-420)
[2016-08-04 08:59] LABS: HEMOGLOBIN 8.3 gm/dL (12.0-16.0)
[2016-08-04 09:01] LABS: DIFF IND NO
[2016-08-04 12:44] LABS: HEMATOCRIT 24.8 % (35.0-45.0)
[2016-08-04 18:52] LABS: HEMATOCRIT 27.8 % (35.0-45.0); HEMOGLOBIN 8.8 gm/dL (12.0-16.0)
[2016-08-05 05:47] LABS: HEMATOCRIT 23.2 % (35.0-45.0); HEMOGLOBIN 7.4 gm/dL (12.0-16.0); MEAN CORPUSCULAR HEMOGLOBIN 25.8 PG (28-34); MEAN CORPUSCULAR HGB CONC 31.9 g/dL (30-36); RED BLOOD COUNT 2.87 X10e (3.90-5.30); RED CELL DISTRIBUTION WIDTH 19.6 % (11.0-15.5); WHITE BLOOD COUNT 3.5 X10e3 (4.0-10.5)
[2016-08-05 05:54] LABS: INR 1.6; PROTHROMBIN TIME (PATIENT) 17.1 SECONDS (9.6-11.5)
[2016-08-05 05:58] LABS: MEAN CELL VOLUME 80.9 FL (83-96)
[2016-08-05 06:32] LABS: BILIRUBIN,TOTAL 0.8 mg/dL (0.2-2.0); CALCIUM SERUM 8.3 mg/dL (8.4-10.2); GLOM FILT RATE Estimated 60.8 mL/min (>60); MAGNESIUM 2.1 mg/dL (1.6-3.0); POTASSIUM 3.4 mmol/L (3.5-5.1); PROTEIN TOTAL SERUM 5.4 g/dL (6.0-8.3)
[2016-08-06 07:41] LABS: HEMATOCRIT 24.4 % (35.0-45.0); HEMOGLOBIN 7.7 gm/dL (12.0-16.0); MEAN CELL VOLUME 81.6 FL (83-96); MEAN CORPUSCULAR HEMOGLOBIN 25.7 PG (28-34); MEAN CORPUSCULAR HGB CONC 31.5 g/dL (30-36); MEAN PLATELET VOLUME 7.7 FL (6.5-11.5); RED BLOOD COUNT 2.99 X10e (3.90-5.30); RED CELL DISTRIBUTION WIDTH 20.9 % (11.0-15.5); WHITE BLOOD COUNT 2.9 X10e3 (4.0-10.5)
[2016-08-06 07:59] LABS: INR 1.4; PROTHROMBIN TIME (PATIENT) 14.7 SECONDS (9.6-11.5)
[2016-08-06 08:07] LABS: BILIRUBIN,TOTAL 1.1 mg/dL (0.2-2.0); BUN/CREATININE RATIO 18.88; CALCIUM SERUM 8.3 mg/dL (8.4-10.2); CREATININE SERUM 0.9 mg/dL (0.6-1.4); GLOM FILT RATE Estimated 69.1 mL/min (>60); POTASSIUM 3.2 mmol/L (3.5-5.1); PROTEIN TOTAL SERUM 5.8 g/dL (6.0-8.3)
[2016-08-06 13:36] LABS: HEMATOCRIT 24.9 % (35.0-45.0); HEMOGLOBIN 7.8 gm/dL (12.0-16.0)
[2016-08-06 20:24] LABS: HEMATOCRIT 24.3 % (35.0-45.0); HEMOGLOBIN 7.6 gm/dL (12.0-16.0)
[2016-08-07 02:45] LABS: HEMATOCRIT 24.2 % (35.0-45.0); HEMOGLOBIN 7.6 gm/dL (12.0-16.0); MEAN CELL VOLUME 81.4 FL (83-96); MEAN CORPUSCULAR HEMOGLOBIN 25.7 PG (28-34); MEAN CORPUSCULAR HGB CONC 31.6 g/dL (30-36); MEAN PLATELET VOLUME 8.1 FL (6.5-11.5); RED BLOOD COUNT 2.97 X10e (3.90-5.30); RED CELL DISTRIBUTION WIDTH 21.4 % (11.0-15.5)
[2016-08-07 03:17] LABS: INR 1.3; PROTHROMBIN TIME (PATIENT) 13.4 SECONDS (9.6-11.5)
[2016-08-07 03:22] LABS: PARTIAL THROMBOPLASTIN TIME 143.8 SECONDS (23.5-31.3)
[2016-08-07 04:10] LABS: CALCIUM SERUM 8.3 mg/dL (8.4-10.2); POTASSIUM 3.8 mmol/L (3.5-5.1)
[2016-08-07 04:21] LABS: ALBUMIN SERUM 3.1 g/dL (3.5-5.0); BILIRUBIN,TOTAL 1.1 mg/dL (0.2-2.0); GLOM FILT RATE Estimated 60.8 mL/min (>60); PROTEIN TOTAL SERUM 5.6 g/dL (6.0-8.3)
[2016-08-08 05:46] LABS: HEMATOCRIT 24.4 % (35.0-45.0); HEMOGLOBIN 7.6 gm/dL (12.0-16.0); MEAN CELL VOLUME 83.4 FL (83-96); MEAN CORPUSCULAR HEMOGLOBIN 26.1 PG (28-34); MEAN CORPUSCULAR HGB CONC 31.3 g/dL (30-36); MEAN PLATELET VOLUME 7.5 FL (6.5-11.5); RED BLOOD COUNT 2.92 X10e (3.90-5.30); RED CELL DISTRIBUTION WIDTH 22.6 % (11.0-15.5); WHITE BLOOD COUNT 2.9 X10e3 (4.0-10.5)
[2016-08-08 06:15] LABS: INR 1.2; PROTHROMBIN TIME (PATIENT) 12.7 SECONDS (9.6-11.5)
[2016-08-08 06:17] LABS: PARTIAL THROMBOPLASTIN TIME 50.9 SECONDS (23.5-31.3)
[2016-08-08 06:54] LABS: CALCIUM SERUM 8.1 mg/dL (8.4-10.2); GLOM FILT RATE Estimated 60.8 mL/min (>60); MAGNESIUM 1.9 mg/dL (1.6-3.0); POTASSIUM 3.6 mmol/L (3.5-5.1)
[2016-08-09 06:08] LABS: INR 1.3; PROTHROMBIN TIME (PATIENT) 13.3 SECONDS (9.6-11.5)
[2016-08-09 06:10] LABS: HEMATOCRIT 24.1 % (35.0-45.0); HEMOGLOBIN 7.5 gm/dL (12.0-16.0); MEAN CELL VOLUME 84.6 FL (83-96); MEAN CORPUSCULAR HEMOGLOBIN 26.3 PG (28-34); MEAN PLATELET VOLUME 8.6 FL (6.5-11.5); RED BLOOD COUNT 2.85 X10e (3.90-5.30); RED CELL DISTRIBUTION WIDTH 23.1 % (11.0-15.5); WHITE BLOOD COUNT 2.5 X10e3 (4.0-10.5)
[2016-08-09 06:51] LABS: BUN/CREATININE RATIO 16.36; CALCIUM SERUM 7.9 mg/dL (8.4-10.2); CREATININE SERUM 1.1 mg/dL (0.6-1.4); GLOM FILT RATE Estimated 54.2 mL/min (>60); MAGNESIUM 1.9 mg/dL (1.6-3.0); POTASSIUM 3.5 mmol/L (3.5-5.1)
[2016-08-10 08:40] LABS: HEMATOCRIT 25.9 % (35.0-45.0); HEMOGLOBIN 8.2 gm/dL (12.0-16.0); MEAN CELL VOLUME 84.3 FL (83-96); MEAN CORPUSCULAR HEMOGLOBIN 26.6 PG (28-34); MEAN CORPUSCULAR HGB CONC 31.5 g/dL (30-36); MEAN PLATELET VOLUME 8.7 FL (6.5-11.5); RED BLOOD COUNT 3.07 X10e (3.90-5.30); RED CELL DISTRIBUTION WIDTH 24.3 % (11.0-15.5); WHITE BLOOD COUNT 2.7 X10e3 (4.0-10.5)
[2016-08-10 08:50] LABS: INR 1.3; PROTHROMBIN TIME (PATIENT) 13.7 SECONDS (9.6-11.5)
[2016-08-10 09:00] LABS: CALCIUM SERUM 8.5 mg/dL (8.4-10.2); CREATININE SERUM 1.1 mg/dL (0.6-1.4); GLOM FILT RATE Estimated 54.2 mL/min (>60); POTASSIUM 3.7 mmol/L (3.5-5.1)
[2016-08-11 07:06] LABS: HEMOGLOBIN 7.4 gm/dL (12.0-16.0); MEAN CELL VOLUME 84.7 FL (83-96); MEAN CORPUSCULAR HEMOGLOBIN 26.3 PG (28-34); MEAN PLATELET VOLUME 8.7 FL (6.5-11.5); RED BLOOD COUNT 2.83 X10e (3.90-5.30); RED CELL DISTRIBUTION WIDTH 25.3 % (11.0-15.5); WHITE BLOOD COUNT 2.6 X10e3 (4.0-10.5)
[2016-08-11 08:19] LABS: CALCIUM SERUM 8.6 mg/dL (8.4-10.2); CREATININE SERUM 1.2 mg/dL (0.6-1.4); GLOM FILT RATE Estimated 48.7 mL/min (>60)
[2016-08-11 09:57] LABS: INR 1.4; PROTHROMBIN TIME (PATIENT) 15.4 SECONDS (9.6-11.5)
[2016-08-12 06:38] LABS: HEMATOCRIT 25.1 % (35.0-45.0); HEMOGLOBIN 7.9 gm/dL (12.0-16.0); MEAN CELL VOLUME 84.2 FL (83-96); MEAN CORPUSCULAR HEMOGLOBIN 26.6 PG (28-34); MEAN CORPUSCULAR HGB CONC 31.6 g/dL (30-36); RED BLOOD COUNT 2.98 X10e (3.90-5.30); WHITE BLOOD COUNT 2.6 X10e3 (4.0-10.5)
[2016-08-12 06:43] LABS: INR 1.6; PROTHROMBIN TIME (PATIENT) 17.5 SECONDS (9.6-11.5)
[2016-08-13 07:47] LABS: INR 1.8; PROTHROMBIN TIME (PATIENT) 19.4 SECONDS (9.6-11.5)
[2016-08-14 06:30] LABS: HEMATOCRIT 27.3 % (35.0-45.0); HEMOGLOBIN 8.9 gm/dL (12.0-16.0); MEAN CELL VOLUME 84.3 FL (83-96); MEAN CORPUSCULAR HEMOGLOBIN 27.5 PG (28-34); MEAN CORPUSCULAR HGB CONC 32.7 g/dL (30-36); MEAN PLATELET VOLUME 9.1 FL (6.5-11.5); RED BLOOD COUNT 3.24 X10e (3.90-5.30); RED CELL DISTRIBUTION WIDTH 26.3 % (11.0-15.5); WHITE BLOOD COUNT 3.5 X10e3 (4.0-10.5)
[2016-08-14 06:55] LABS: INR 1.8; PROTHROMBIN TIME (PATIENT) 19.4 SECONDS (9.6-11.5)
[2016-08-14 07:31] LABS: BUN/CREATININE RATIO 20.62; CREATININE SERUM 1.6 mg/dL (0.6-1.4); GLOM FILT RATE Estimated 34.4 mL/min (>60); POTASSIUM 3.9 mmol/L (3.5-5.1)
[2016-08-15 05:24] LABS: INR 2.1; PROTHROMBIN TIME (PATIENT) 22.7 SECONDS (9.6-11.5)
[2016-08-15 05:31] LABS: HEMATOCRIT 27.2 % (35.0-45.0); HEMOGLOBIN 8.7 gm/dL (12.0-16.0); MEAN CELL VOLUME 85.4 FL (83-96); MEAN CORPUSCULAR HEMOGLOBIN 27.2 PG (28-34); MEAN CORPUSCULAR HGB CONC 31.8 g/dL (30-36); MEAN PLATELET VOLUME 9.1 FL (6.5-11.5); RED BLOOD COUNT 3.19 X10e (3.90-5.30); RED CELL DISTRIBUTION WIDTH 26.5 % (11.0-15.5); WHITE BLOOD COUNT 3.3 X10e3 (4.0-10.5)
[2016-08-15 06:24] LABS: BUN/CREATININE RATIO 22.66; CALCIUM SERUM 8.7 mg/dL (8.4-10.2); CREATININE SERUM 1.5 mg/dL (0.6-1.4); GLOM FILT RATE Estimated 37.2 mL/min (>60); POTASSIUM 4.3 mmol/L (3.5-5.1)
[2016-08-15] MEDS ORDERED: ACETAMINOPHEN650 M1 PO (11:52)
[2016-08-15] MEDS ORDERED: BAYER CHEWABLE81 MG PO (11:52)
[2016-08-15] MEDS ORDERED: SILVER NITRATE TOP (11:54)
[2016-08-15] MEDS ORDERED: FOLIC ACID1 MG PO ×3 (11:54→12:32)
== END 2016-08-15 13:36 | disposition home health service (06) | DRG 811 ==
LOC: CED 19:16 → CEDOF 21:16 → CICCU3 08-03 01:30 → C5B 08-04 01:13
PROVIDERS: Emergency Medicine; Family Medicine; Internal Medicine; Internal Medicine Cardiovascular Disease; Internal Medicine Gastroenterology; Internal Medicine Hematology; Nurse Practitioner; Nurse Practitioner Family
PROC: 30233N1 Transfusion of Nonautologous Red Blood Cells into Peripheral Vein, Percutaneous Approach (ICD-10-PCS; principal; 2016-08-02)
PROC: B24BZZZ Ultrasonography of Heart with Aorta (ICD-10-PCS; 2016-08-03)
PROC: 0DJ08ZZ Inspection of Upper Intestinal Tract, Via Natural or Artificial Opening Endoscopic (ICD-10-PCS; 2016-08-04)
PROC: 0DJD8ZZ Inspection of Lower Intestinal Tract, Via Natural or Artificial Opening Endoscopic (ICD-10-PCS; 2016-08-04)
DX: D46.9 Myelodysplastic syndrome, unspecified (principal); I50.23 Acute on chronic systolic (congestive) heart failure; D61.818 Other pancytopenia; I49.5 Sick sinus syndrome; I13.0 Hypertensive heart and chronic kidney disease with heart failure and stage 1 through stage 4 chronic kidney disease, or unspecified chronic kidney disease; I48.2 Chronic atrial fibrillation; K21.9 Gastro-esophageal reflux disease without esophagitis; E03.9 Hypothyroidism, unspecified; F32.9 Major depressive disorder, single episode, unspecified; I25.10 Atherosclerotic heart disease of native coronary artery without angina pectoris; Z95.810 Presence of automatic (implantable) cardiac defibrillator; Z79.01 Long term (current) use of anticoagulants; D64.9 Anemia, unspecified; I25.5 Ischemic cardiomyopathy; Z95.2 Presence of prosthetic heart valve; E78.5 Hyperlipidemia, unspecified; J45.909 Unspecified asthma, uncomplicated; N18.9 Chronic kidney disease, unspecified; F41.9 Anxiety disorder, unspecified; K29.60 Other gastritis without bleeding
CPT/HCPCS: 36415; 71010; 77002; 77012; 80048; 80053; 82274; 82550; 82553; 82607; 82728; 82746; 82947; 83540; 83550; 83735; 83880; 84484; 85014; 85018; 85025; 85027; 85044; 85610; 85730; 86850; 86900; 86901; 86923; 88305; 88311; 93005; 93306; 94760; 96374; 97116; 97162; 99144; 99153; 99285; C9113; G8978-GP; G8979-GP; G8980-GP; J0290; J1644; J1650; J1940; J2250; J2916; J3010; P9016; P9059